=== PATIENT | female | born 1985 | race Caucasian/White ===

== ENCOUNTER 2021-01-05 00:40 | Emergency (ER) | payer OTHER ==
[2021-01-05] MEDS ORDERED: Morphine 4 MG/ML VIAL ONE (00:51)
[2021-01-05] MEDS ORDERED: Lidocaine 4% Cream 5 GM TUBE w/ Tegaderm ONE (00:51)
== END 2021-01-05 01:52 | disposition left against medical advice (07) ==
LOC: BURERS 00:40
DX: S92.002A Unspecified fracture of left calcaneus, initial encounter for closed fracture (principal); S60.512A Abrasion of left hand, initial encounter; S60.511A Abrasion of right hand, initial encounter; W55.12XA Struck by horse, initial encounter
CPT/HCPCS: 29515; 96372; J2270